=== PATIENT | male | born 1985 | race Caucasian/White ===

== ENCOUNTER 2019-05-14 13:17 | Emergency (ER) | payer OTHER, BC ==
[~2019-05-14] VITALS: Ht 182.9 cm; Wt 81.7 kg
[2019-05-14] MEDS ORDERED: Ventolin/Prove6.7 GM (13:28)
== END 2019-05-14 14:34 | disposition home or self-care (01) ==
LOC: ER 13:17
DX: Z77.098 Contact with and (suspected) exposure to other hazardous, chiefly nonmedicinal, chemicals (principal); J45.909 Unspecified asthma, uncomplicated; Z87.891 Personal history of nicotine dependence; Z79.899 Other long term (current) drug therapy
CPT/HCPCS: 71046; 99284-25; J1100

== ENCOUNTER → 2022-10-31 | Outpatient (CLI) | payer BC, OTHER ==
[~2022-10-31] MED LIST: Ventolin/Prove6.7 GM
[2022-10-31 16:21] LABS: Alanine Aminotransfer (ALT/SGP 38 U/L (12-78); Albumin, Blood 4.5 g/dL (3.4-5.0); Albumin/Globulin Ratio 1.5 (0.8-1.8); Alk Phos 58 U/L (50-136); Anion Gap 4 mmol/L (6-16); Aspartate Aminotrans (AST/SGOT 14 U/L (12-37); Bilirubin, Total 0.3 mg/dL (0.1-1.0); Blood Urea Nitrogen 15 mg/dL (8-24); Bun/Creatinine Ratio 22.6 (12.0-20.0); CHOL/HDL RATIO 4.6; CO2, Blood 27 mmol/L (21-32); Calcium, Blood 9.2 mg/dL (8.5-10.1); Chloride, Blood 108 mmol/L (98-108); Cholesterol 185 mg/dL (50-200); Creatinine, Blood 0.66 mg/dL (0.60-1.20); Globulin, Blood 3.1 g/dL (2.2-4.0); Glomerular Filtration Rate 124 (60-); Glucose, Blood 101 mg/dL (70-99); HDL Cholesterol 40 mg/dL (>39); LDL/HDL RATIO 2.9; Low Density Lipoprotein Chol 118 mg/dL (0-110); Sodium, Blood 139 mmol/L (136-145); Total Protein, Blood 7.6 g/dL (6.4-8.2); Triglycerides 136 mg/dL (30-140); Very Low Density Lipoprot Chol 27 mg/dL (6-28)
== END | disposition home or self-care (01) ==
LOC: LAB SHORT 09:10
PROVIDERS: Hospitalist
DX: R03.0 Elevated blood-pressure reading, without diagnosis of hypertension (principal)
CPT/HCPCS: 80053; 80061